=== PATIENT | male | born 1960 | race American Indian/Alaskan Native ===

== ENCOUNTER 2017-07-29 06:29 | Inpatient (IN) | payer SELFPAY ==
[2017-07-29] MEDS ORDERED: ZOFRAN ODT ONE (07:22)
[2017-07-29] MEDS ORDERED: ZOFRAN ODT PO ONE (07:28)
[2017-07-29 08:06] LABS: Albumin 4.2 g/dL (3.9-5); BUN/Creatinine Ratio 9; Blood Urea Nitrogen 10 mg/dL (9-20); Calcium 9.1 mg/dL (8.4-10.2); Hemolysis Index 164; Lipase 54 units/L (13-60)
[2017-07-29] MEDS ORDERED: NORVASC ONE (08:06)
[2017-07-29] MEDS ORDERED: NORVASC PO ONE (08:09)
[2017-07-29 08:10] LABS: Alanine Aminotransferase 22 units/L (7-56)
[2017-07-29 09:48] LABS: Bilirubin,Urine NEG (Negative); Blood,Urine MOD (Negative); Color,Urine Yellow (Yellow); Mucus,Urine 2+ /HPF; Urobilinogen,Urine < 2.0 mg/dL (<2.0)
[2017-07-29] MEDS ORDERED: DILAUDID IV ONE (10:23)
[2017-07-29] MEDS ORDERED: ZOFRAN IV ONE (10:23)
[2017-07-29] MEDS ORDERED: NACL 0.9% 1000 ML 1,000 ML IV ONE (10:23)
--- NOTE | 2017-07-29 10:28 | Emergency Department Report ---
ED Abdominal Pain HPI - General Chief Complaint: Abdominal Pain Stated Complaint: STOMACH POISONING Time Seen by Provider: 07/29/17 10:16 Source: patient Mode of arrival: Ambulatory Limitations: No Limitations - History of Present Illness Initial Comments: Mr. Duque is a 56-year-old male with history of PE, DVT, peripheral vascular disease who presents with severe abdominal pain radiating to both flanks. Symptoms began after drinking liquor yesterday afternoon. Severe 10 out of 10 central abdominal pain. No change with movement. No change with palpation. He was recently admitted at the [facility] for "alcohol poisoning". He was hospitalized for 8 days. No history of pancreatitis. Patient does have a history of [id number] amputation with prosthesis. He also has a history of hypertension. He does not drink alcohol daily. He is followed at the [facility]. He states that he has been noncompliant with Xarelto. He has had many recent life stressors which have distracted him for taking care of his health. MD Complaint: abdominal pain, flank pain -: Gradual, hour(s) (since yesterday evening) Radiation: L flank, R flank Severity: severe Severity scale (0 -10): 10 Quality: cramping, stabbing, aching, sharp Consistency: constant Improves With: nothing Worsens With: nothing Context: possible food poisoning, other (alcohol use) Associated Symptoms: nausea, vomiting. denies: diarrhea, fever, chills, constipation, dysuria - Related Data Allergies Allergy/AdvReac Type Severity Reaction Status Date / Time aspirin Allergy Unknown Verified 07/29/17 06:34 ED Review of Systems ROS: Stated complaint: STOMACH POISONING Other details as noted in HPI Comment: All other systems reviewed and negative Constitutional: malaise. denies: chills, fever Cardiovascular: denies: chest pain ED Past Medical Hx - Past Medical History Previous Medical History?: Yes Hx Hypertension: Yes Hx Deep Vein Thrombosis: Yes Hx Pulmonary Embolism: Yes - Social History Smoking Status: Current Every Day Smoker Substance Use Type: Alcohol ED Physical Exam - General Limitations: No Limitations General appearance: alert, other (appears in severe pain rocking back and forth in the bed) - Head Head exam: Present: atraumatic, normocephalic - Eye Eye exam: Present: normal appearance - ENT ENT exam: Present: mucous membranes moist - Neck Neck exam: Present: normal inspection. Absent: meningismus - Respiratory Respiratory exam: Present: normal lung sounds bilaterally. Absent: respiratory distress, wheezes, rales, rhonchi - Cardiovascular Cardiovascular Exam: Present: regular rate, normal rhythm, normal heart sounds. Absent: systolic murmur, diastolic murmur, rubs, gallop - GI/Abdominal GI/Abdominal exam: Present: soft, normal bowel sounds. Absent: distended, tenderness, guarding, rebound - Rectal Rectal exam: Present: deferred - Extremities Exam Extremities exam: Present: normal inspection, other (above the knee prosthesis on the right lower extremity) - Back Exam Back exam: Present: normal inspection - Neurological Exam Neurological exam: Present: alert, oriented X3 - Psychiatric Psychiatric exam: Present: anxious - Skin Skin exam: Present: warm, dry, intact, normal color. Absent: rash ED Course Vital Signs 07/29/17 07/29/17 07/29/17 06:38 08:11 10:22 Temperature 98.4 F Pulse Rate 93 H 93 H 88 Respiratory 20 21 Rate Blood Pressure 197/117 197/117 190/107 O2 Sat by Pulse 98 96 Oximetry 07/29/17 10:30 Temperature Pulse Rate 87 Respiratory 21 Rate Blood Pressure 195/111 O2 Sat by Pulse 93 Oximetry ED Medical Decision Making - Lab Data Result diagrams: 07/29/17 10:19 07/29/17 07:11 Laboratory Results - last 24 hr 07/29/17 07/29/17 07/29/17 07:11 09:20 10:19 WBC 8.4 RBC 5.64 H Hgb 17.6 H Hct 52.9 H MCV 94 MCH 31 MCHC 33 RDW 12.8 L Plt Count 153 Lymph % (Auto) 9.7 L Hill % (Auto) 4.0 Eos % (Auto) 0.0 Baso % (Auto) 0.3 Lymph # 0.8 L Hill # 0.3 Eos # 0.0 Baso # 0.0 Seg Neutrophils % 86.0 H Seg Neutrophils # 7.2 PT INR APTT Sodium 136 L Potassium 4.8 Chloride 97.7 L Carbon Dioxide 24 Anion Gap 19 BUN 10 Creatinine 1.1 Estimated GFR > 60 BUN/Creatinine Ratio 9 Glucose 148 H Calcium 9.1 Total Bilirubin 0.50 AST 34 ALT 22 Alkaline Phosphatase 101 Total Protein 8.2 Albumin 4.2 Albumin/Globulin Ratio 1.1 Lipase 54 Urine Color Yellow Urine Turbidity Clear Urine pH 5.0 Ur Specific [place] 1.028 Urine Protein 100 mg/dl Urine Glucose (UA) 50 Urine Ketones Tr Urine Blood Mod Urine Nitrite Neg Urine Bilirubin Neg Urine Urobilinogen < 2.0 Ur Leukocyte Esterase Neg Urine WBC (Auto) 3.0 Urine RBC (Auto) 4.0 U Epithel Cells (Auto) < 1.0 Uric Acid Crystals 1+ Urine Mucus 2+ Plasma/Serum Alcohol 07/29/17 07/29/17 10:19 10:19 WBC RBC Hgb Hct MCV MCH MCHC RDW Plt Count Lymph % (Auto) Hill % (Auto) Eos % (Auto) Baso % (Auto) Lymph # Hill # Eos # Baso # Seg Neutrophils % Seg Neutrophils # PT 13.9 INR 1.02 APTT 28.5 Sodium Potassium Chloride Carbon Dioxide Anion Gap BUN Creatinine Estimated GFR BUN/Creatinine Ratio Glucose Calcium Total Bilirubin AST ALT Alkaline Phosphatase Total Protein Albumin Albumin/Globulin Ratio Lipase Urine Color Urine Turbidity Urine pH Ur Specific [place] Urine Protein Urine Glucose (UA) Urine Ketones Urine Blood Urine Nitrite Urine Bilirubin Urine Urobilinogen Ur Leukocyte Esterase Urine WBC (Auto) Urine RBC (Auto) U Epithel Cells (Auto) Uric Acid Crystals Urine Mucus Plasma/Serum Alcohol < 0.01 - Medical Decision Making Mr. Spivey has hx of VTE and severe PVD. Noncompliant with Xarelto. Today has renal infarct on right involving 30% of kidney. Dr. Alvares vascular surgeon recommended heparin therapy for anticoagulation for acute thromboembolic event leading to renal infarct. Dr. Valdovinos hospitalist will admit. Critical Care Time: Yes (40) Critical care attestation.: If time is entered above; I have spent that time in minutes in the direct care of this critically ill patient, excluding procedure time. ED Disposition Clinical Impression: Renal infarction, PVD (peripheral vascular disease) Disposition: OP ADMIT IP TO THIS HOSP Is pt being admited?: Yes Does the pt Need Aspirin: Yes Condition: Stable Time of Disposition: 13:05
[2017-07-29 10:41] LABS: Basophils % (Auto) 0.3 % (0.0-1.8); Hematocrit 52.9 % (35.5-45.6); Hemoglobin 17.6 gm/dl (11.8-15.2); Lymphocytes # (Auto) 0.8 K/mm3 (1.2-5.4); Lymphocytes % (Auto) 9.7 % (13.4-35.0); Mean Corpuscular HGB Conc 33 % (32-34); Mean Corpuscular Hemoglobin 31 pg (28-32); Mean Corpuscular Volume 94 fl (84-94); Monocytes # (Auto) 0.3 K/mm3 (0.0-0.8); Platelet Count 153 K/mm3 (140-440); Red Blood Count 5.64 M/mm3 (3.65-5.03); Red Cell Distribution Width 12.8 % (13.2-15.2)
[2017-07-29 10:51] LABS: INR 1.02 (0.87-1.13)
[2017-07-29 10:52] LABS: Partial Thromboplastin Time 28.5 Sec. (24.2-36.6)
--- NOTE | 2017-07-29 11:37 | Cat Scan Report ---
CT ABDOMEN AND PELVIS WITH CONTRAST: 07/29/17 06:29:00 CLINICAL: Abdominal pain. COMPARISON: None. TECHNIQUE: Volumetric acquisition and 1.25 millimeter scan reconstructions after the uneventful intravenous injection of 100 cc Omnipaque 300. Consent was obtained prior to the administration of contrast. Oral contrast was not given. FINDINGS: Abdomen: The lung bases are clear.Atherosclerotic disease of the aorta with extensive plaque in the lower thoracic and abdominal aorta. No aneurysm or dissection. IVC filter. A large portion of the right kidney is not perfused. There is a wedge-shaped defect in perfusion involves the lateral upper and midportion of the kidney. The right renal artery appears patent with no identifiable thrombus in the artery. No renal mass or calculus. The left kidney is normal except for a 7 mm left upper pole cyst. The renal collecting systems the ureters are nondilated. The right adrenal gland is normal. The left adrenal gland is enlarged by 1.4 cm hypodense nodule that splays the medial and lateral limbs. It measures 57 Hounsfield units in density. Normal liver, bile ducts and gallbladder. Normal stomach, duodenum, pancreas and spleen. Normal small bowel.Normal ascending, transverse and descending colon. An appendix is not identified. No mass, lymphadenopathy or ascites.No pneumoperitoneum. Pelvis: Normal urinary bladder.The prostate is enlarged and measures 5.3 x 4.6 cm. Normal seminal vesicles. Normal rectum and sigmoid colon. Aneurysm of the right common iliac artery measures 1.8 cm and contains considerable plaque. Aneurysm of the left common femoral artery measures 1.9 cm and contains considerable plaque. The right common femoral artery and right official femoral artery are occluded at the groin but there is collateral flow through the right profunda femoral artery. Bone windows demonstrate no bone lesion. IMPRESSION:1. A sizable acute/subacute infarct involving approximately 30% of the right kidney with a patent right renal artery. 2. Occlusion of the right common femoral and superficial femoral arteries with collateral flow through the right profunda femoral artery. 3. Atherosclerotic disease of the aorta with extensive noncalcified plaque. 4. Atherosclerotic disease of the iliac arteries and bilateral common iliac aneurysm. 5. Large prostate.
[2017-07-29] MEDS ORDERED: SODIUM CHLORIDE FLUSH SYRINGE 10 ML IV PRN (13:03)
[2017-07-29] MEDS ORDERED: TYLENOL PO PRN (13:03)
[2017-07-29] MEDS ORDERED: PROVENTIL IH PRN (13:03)
--- NOTE | 2017-07-29 13:05 | History and Physical Report ---
History of Present Illness Chief complaint: My stomach hurts History of present illness: 56 YO Male with PAD, DVT/PE, HTN Noncompliant with anticoagulation, Nicotine Dependence, ETOH Abuse presents to ED for evaluation. Pt states that he has experienced abdominal pain over the past 1 day with persistent symptoms over the same time fram. Pt states that pain is 10/10, Epigastric in location, Cramping, Sharp, constant, radiates to the left flank, no worsened with movement , or relieved with rest. Pt seen and evaluated in ED and underwent CT Abdomen/ Pelvis which revealed Right Renal Ischemia. IR consulted in ED. Pt initiated on anticoagulation therapy and admitted to medical floor. Past History Past Medical History: DVT, hypertension, PVD, pulmonary embolism Past Surgical History: Other (AKA) Social history: single, smoking, alcohol abuse Family history: hypertension Medications and Allergies Allergies Allergy/AdvReac Type Severity Reaction Status Date / Time aspirin Allergy Unknown Verified 07/29/17 06:34 Review of Systems Constitutional: no weight loss, no weight gain, no fever, no sweats Ears, nose, mouth and throat: no ear pain, no ear discharge, no tinnitis, no decreased hearing, no nose pain, no nasal congestion Cardiovascular: no orthopnea, no palpitations, no rapid/irregular heart beat, no edema, no syncope Respiratory: no cough, no cough with sputum, no excessive sputum, no hemoptysis , no shortness of breath Gastrointestinal: abdominal pain, no nausea, no vomiting, no diarrhea Genitourinary Male: no hematuria, no flank pain, no discharge, no urinary frequency, no urinary hesitancy Rectal: no pain, no incontinence, no bleeding Musculoskeletal: no neck stiffness, no neck pain, no shooting arm pain, no arm numbness/tingling, no low back pain, no shooting leg pain Integumentary: no rash, no pruritis, no sores, no wounds, no jaundice Neurological: no head injury, no paralysis, no weakness, no parathesias, no numbness, no tingling Psychiatric: no anxiety, no memory loss, no change in sleep habits, no sleep disturbances, no insomnia, no hypersomnia, no suicidal ideation, no disorientation Endocrine: no cold intolerance, no heat intolerance, no polyphagia, no excessive thirst, no polydipsia, no polyuria, no nocturia, no excessive sweating , no flushing Hematologic/Lymphatic: no easy bruising, no easy bleeding, no lymphadenopathy, no lymphedema Allergic/Immunologic: no urticaria, no allergic rhinitis, no wheezing, no persistent infections, no anaphylaxis, no angioedema Exam - Constitutional Vitals: Temp Pulse Resp BP Pulse Ox 98.4 F 87 21 195/111 93 07/29/17 06:38 07/29/17 10:30 07/29/17 10:30 07/29/17 10:30 07/29/17 10:30 General appearance: Present: mild distress - EENT Eyes: Present: PERRL ENT: hearing intact, clear oral mucosa - Neck Neck: Present: supple, normal ROM - Respiratory Respiratory effort: normal Respiratory: bilateral: CTA - Cardiovascular Heart Sounds: Present: S1 & S2. Absent: rub, click - Extremities Extremities: pulses symmetrical, No edema Peripheral Pulses: within normal limits - Abdominal General gastrointestinal: Present: soft, non-tender, non-distended, normal bowel sounds Male genitourinary: Present: normal - Integumentary Integumentary: Present: clear, warm, dry - Musculoskeletal Musculoskeletal: gait normal, strength equal bilaterally - Psychiatric Psychiatric: appropriate mood/affect, intact judgment & insight - Neurologic Neurologic: CNII-XII intact, moves all extremities Results - Labs CBC & Chem 7: 07/29/17 10:19 07/29/17 07:11 Labs: Abnormal lab results 07/29/17 07/29/17 Range/Units 07:11 10:19 RBC 5.64 H (3.65-5.03) M/mm3 Hgb 17.6 H (11.8-15.2) gm/dl Hct 52.9 H (35.5-45.6) % RDW 12.8 L (13.2-15.2) % Lymph % (Auto) 9.7 L (13.4-35.0) % Lymph # 0.8 L (1.2-5.4) K/mm3 Seg Neutrophils % 86.0 H (40.0-70.0) % Sodium 136 L (137-145) mmol/L Chloride 97.7 L (98-107) mmol/L Glucose 148 H (75-100) mg/dL Assessment and Plan - Patient Problems (1) Ischemia and infarction of kidney Current Visit: Yes Status: Acute Plan to address problem: IR consulted, Heparin drip, pain control, serial abdominal exam, (2) PAD (peripheral artery disease) Current Visit: Yes Status: Acute Plan to address problem: IR consulted, lipid panel, low cholesterol diet, therapeutic anticoagulation, Risk factor reduction. (3) Hypertensive urgency, malignant Current Visit: Yes Status: Acute Plan to address problem: monitor bp q shift, IV hydralazine prn (4) Nicotine dependence unspecified, with withdrawal Current Visit: Yes Status: Acute Plan to address problem: Supportive care, smoking cessation counseling, (5) ETOH abuse Current Visit: Yes Status: Acute Plan to address problem: Thiamine, Folic Acid, Multivitamin, CIWA Protocol. (6) DVT prophylaxis Current Visit: Yes Status: Acute
[2017-07-29] MEDS ORDERED: HEPARIN 10,000 UNITS/10 ML IV ONE (14:00)
[2017-07-29] MEDS ORDERED: HEPARIN/ 0.45% NACL-25,000 UNIT/500 ML 25,000 UNIT/500 ML BAG ONE (14:41)
[2017-07-29] MEDS ORDERED: HEPARIN 10,000 UNITS/10 ML ONE (14:42)
[2017-07-29] MEDS: HEPARIN/ 0.45% NACL-25,000 UNIT/500 ML 25,000 UNIT/500 ML BAG IV SCH (14:58)
[2017-07-29] MEDS ORDERED: ATIVAN IV PRN (15:40)
[2017-07-29 16:13] LABS: Hematocrit 51.5 % (35.5-45.6); Hemoglobin 17.1 gm/dl (11.8-15.2)
[2017-07-29 16:36] LABS: INR 1.13 (0.87-1.13)
--- NOTE | 2017-07-29 16:50 | Consultation ---
History of Present Illness - Reason for Consult Consult date: 07/29/17 Renal infarct - History of Present Illness 56 year old male with PAD, DVT/PE, HTN, noncompliant with anticoagulation, nicotine Dependence, ETOH abuse presents to ED for evaluation. Pt states that he has experienced abdominal pain over the past 1 day with persistent symptoms over the same time frame. Pt states that pain is 10/10, Epigastric in location, cramping, sharp, and constant. He also has severe pain over his right flank. Patient was seen 2 weeks ago at [facility] with similar complaints which was associated with nausea and vomiting and was diagnosed with "alcohol poisoning" and did not have a CT at that facility. Patient has a history of protein C deficiency and multiple DVTs in the left lower extremity. He has a right above-knee amputation which occurred 3 years ago. This happened due to a "blood clot". Physical exam demonstrates non-palpable left pedal pulses with a well-healed right above-knee amputation. Past History Past Medical History: DVT, hypertension, PVD, pulmonary embolism Past Surgical History: Other (AKA) Social history: single, smoking, alcohol abuse Family history: hypertension Medications and Allergies Allergies Allergy/AdvReac Type Severity Reaction Status Date / Time aspirin Allergy Unknown Verified 07/29/17 06:34 Active Meds: Active Medications Acetaminophen (Tylenol) 650 mg PO Q4H PRN PRN Reason: Pain MILD(1-3)/Fever >100.5/[place] Albuterol (Proventil) 2.5 mg IH Q4H PRN PRN Reason: Shortness Of Breath Folic Acid (Folvite) 1 mg PO QDAY [facility] Heparin Sodium/Sodium Chloride (Heparin/ 0.45% Nacl-25,000 Unit/500 Ml) 25,000 unit in 500 mls @ 24 mls/hr IV TITR LIV; Protocol Last Admin: 07/29/17 14:58 Dose: 1,200 units/hr, 24 mls/hr Lorazepam (Ativan) 2 mg IV Q1H PRN PRN Reason: CIWA-Ar 8-15 Stop: 07/30/17 23:59 Multivitamins (Theragran Tab) 1 each PO QDAY [facility] Ondansetron HCl (Zofran) 4 mg IV Q8H PRN PRN Reason: Nausea And Vomiting Sodium Chloride (Sodium Chloride Flush Syringe 10 Ml) 10 ml IV BID LIV Sodium Chloride (Sodium Chloride Flush Syringe 10 Ml) 10 ml IV PRN PRN PRN Reason: LINE FLUSH Thiamine HCl (Vitamin B-1) 100 mg PO QDAY LIV Review of Systems All systems: negative (see HPI) Exam - Constitutional Vitals: Temp Pulse Resp BP Pulse Ox 98.4 F 97 H 17 159/90 95 07/29/17 06:38 07/29/17 15:15 07/29/17 15:15 07/29/17 15:15 07/29/17 15:15 General appearance: Present: mild distress (right flank pain) - EENT Eyes: Present: EOM intact ENT: hearing intact - Neck Neck: Present: supple - Respiratory Respiratory effort: normal - Extremities Extremities: normal temperature, normal color, abnormal (right AKA) Extremity abnormal: pulses diminished (left nonpalpable pedal pulses), other ( dry skin over the left foot and ankle) Peripheral Pulses: abnormal - Abdominal General gastrointestinal: Present: tender (right flank ) - Psychiatric Psychiatric: appropriate mood/affect, cooperative Results - Labs CBC & Chem 7: 07/29/17 15:33 07/29/17 07:11 Labs: Abnormal lab results 07/29/17 07/29/17 07/29/17 Range/Units 07:11 10:19 15:33 RBC 5.64 H (3.65-5.03) M/mm3 Hgb 17.6 H 17.1 H (11.8-15.2) gm/dl Hct 52.9 H 51.5 H (35.5-45.6) % RDW 12.8 L (13.2-15.2) % Plt Count 138 L (140-440) K/mm3 Lymph % (Auto) 9.7 L (13.4-35.0) % Lymph # 0.8 L (1.2-5.4) K/mm3 Seg Neutrophils % 86.0 H (40.0-70.0) % PT (12.2-14.9) Sec. Sodium 136 L (137-145) mmol/L Chloride 97.7 L (98-107) mmol/L Glucose 148 H (75-100) mg/dL 07/29/17 Range/Units 15:33 RBC (3.65-5.03) M/mm3 Hgb (11.8-15.2) gm/dl Hct (35.5-45.6) % RDW (13.2-15.2) % Plt Count (140-440) K/mm3 Lymph % (Auto) (13.4-35.0) % Lymph # (1.2-5.4) K/mm3 Seg Neutrophils % (40.0-70.0) % PT 15.1 H (12.2-14.9) Sec. Sodium (137-145) mmol/L Chloride (98-107) mmol/L Glucose (75-100) mg/dL - Imaging and Cardiology CT scan - abdomen: report reviewed, image reviewed Assessment and Plan 56-year-old male with history of multiple DVTs, right above-knee amputation, and a history of both tobacco and ethanol abuse who presents with right renal infarct. Etiology of the renal infarct is thromboembolic, atheroembolic, or secondary to hypercoagulable condition. The patient has a history of protein C deficiency with laboratory evidence of polycythemia. This is most likely secondary to these hypercoagulable conditions, but he needs to be worked up to exclude a thromboembolic condition. He will need a hematology oncology consult for further evaluation of his polycythemia. I suspect this is partially related to tobacco abuse, but polycythemia in combination with protein C deficiency makes the patient especially hypercoagulable. I discussed cessation of tobacco with the patient. He'll need a cardiology consult to exclude thromboembolic etiology of his renal infarct. His left lower extremity has nonpalpable pedal pulses which I suspect is due to long-standing smoking as his left lower extremity is asymptomatic. However, he will need a CT angiogram of his chest, abdomen, and pelvis to exclude thromboembolic allergies. Patient can be transitioned back to Xarelto if cardiology does not require a EVETTE and hematology is okay with Xarelto. Would recommend reinitiation with 15 mg PO BID x 3 weeks, then 20 mg PO qdaily.
[2017-07-29 17:18] LABS: Partial Thromboplastin Time 188.7 Sec. (24.2-36.6)
[2017-07-29] MEDS: VITAMIN B-1 PO SCH (18:40)
[2017-07-29] MEDS: THERAGRAN Tab PO SCH (18:41)
[2017-07-29] MEDS: FOLVITE PO SCH (18:41)
[2017-07-29] MEDS: PERCOCET 5/325 PO PRN (21:11)
[2017-07-29] MEDS: APRESOLINE IV PRN (21:11)
[2017-07-29] MEDS: SODIUM CHLORIDE FLUSH SYRINGE 10 ML IV SCH (21:14)
[2017-07-30] MEDS: PERCOCET 5/325 PO PRN ×3 (03:05→18:37)
[2017-07-30] MEDS: SODIUM CHLORIDE FLUSH SYRINGE 10 ML IV SCH ×2 (09:52→23:23)
[2017-07-30] MEDS: FOLVITE PO SCH (09:52)
[2017-07-30] MEDS: VITAMIN B-1 PO SCH (09:52)
[2017-07-30] MEDS: THERAGRAN Tab PO SCH (09:52)
[2017-07-30] MEDS: HEPARIN/ 0.45% NACL-25,000 UNIT/500 ML 25,000 UNIT/500 ML BAG IV SCH (09:55)
[2017-07-30] MEDS: HABITROL TD SCH (13:35)
--- NOTE | 2017-07-30 14:22 | Progress Note ---
Assessment and Plan / Ischemia and infarction of kidney IR consulted, Heparin drip, pain control, serial abdominal exam, ordered CTA chest/abdomen/pelvis /PAD (peripheral artery disease) lipid panel, low cholesterol diet, therapeutic anticoagulation, Risk factor reduction. /Hypertensive urgency, monitor bp q shift, IV hydralazine prn / Nicotine dependence unspecified, with withdrawal Supportive care, smoking cessation counseling done, / ETOH abuse Thiamine, Folic Acid, Multivitamin, CIWA Protocol. / DVT prophylaxis heparin drip Brief history: 56 YO Male with PAD, DVT/PE, HTN Noncompliant with anticoagulation, Nicotine Dependence, ETOH Abuse presents to ED for abdominal pain over the past 1 day with persistent symptoms. Pt seen and evaluated in ED and underwent CT Abdomen /Pelvis which revealed Right Renal Ischemia. IR consulted in ED. Pt initiated on anticoagulation therapy and admitted to medical floor. Hospitalist Physical exam: GENERAL: well-developed male lying on bed appeared to be in no discomfort. HEENT: Normocephalic. Atraumatic. No conjunctival congestion or icterus. Patient has moist mucous membranes. NECK: Supple. Trachea midline. CHEST/LUNGS: Clear to auscultated bilaterally, breathing nonlabored. No wheezes crackles or rhonchi. HEART/CARDIOVASCULAR: Regular in rate and rhythm. S1 and S2 positive. ABDOMEN: Abdomen is soft, right tender. Patient has normal bowel sounds. SKIN: There is no rash. Warm and dry. NEURO: No focal motor deficit. Follows command. MUSCULOSKELETAL: No joint effusion or tenderness. EXTRIMITY: No edema, no cyanosis or clubbing. PSYCH: Cooperative. Subjective Date of service: 07/30/17 Interval history: pt seen and examined no acute event o/n tolerating diet c/o rt lumber pain Objective - Constitutional Vitals: Vital Signs - 12hr 07/30/17 07/30/17 05:37 08:28 Temperature 99.7 F H 98.2 F Pulse Rate 99 H 97 H Respiratory 20 20 Rate Blood Pressure 144/96 152/102 O2 Sat by Pulse 94 92 Oximetry - Labs CBC & Chem 7: 07/29/17 15:33 07/29/17 07:11 Labs: Abnormal lab results 07/29/17 07/29/17 07/29/17 Range/Units 15:33 15:33 20:45 Hgb 17.1 H (11.8-15.2) gm/dl Hct 51.5 H (35.5-45.6) % Plt Count 138 L (140-440) K/mm3 PT 15.1 H (12.2-14.9) Sec. APTT 188.7 H* (24.2-36.6) Sec. Heparin Anti-Xa Level 0.20 L (0.3-0.7) U.I./ml
--- NOTE | 2017-07-30 18:45 | Cat Scan Report ---
FINAL REPORT PROCEDURE: PROCEDURE: CT ANGIO CHEST ABDOMEN AND PELVIS TECHNIQUE: CTA of the chest abdomen and pelvis was performed with intravenous contrast. Reformatted/MIP images available. DLP 133.74 mGy-cm. HISTORY: Possible embolism. COMPARISON: No prior studies are available for comparison. FINDINGS: Heart and pericardium: Mild LAD and circumflex coronary artery disease. Mild cardiomegaly. Thoracic aorta: Moderate atherosclerosis, somewhat irregular in the descending thoracic aorta and at the hiatus. Ascending aorta measures 4.3 cm. Descending aorta measures 3 cm. Pulmonary vasculature: Linear areas of low attenuation and right upper lobe pulmonary artery branches (images 73 series 3). Subtle area of low attenuation in smaller segmental right lower lobe pulmonary artery branches (images 52, 54 series 2; images 103, 108 series 3). Also difficult to exclude smaller segmental/subsegmental left lower lobe emboli (image 117 series 3; images 108, 117 series 3). Mediastinum: No enlarged thoracic lymph nodes. Lungs: Minimal biapical paraseptal emphysema. Bibasilar ground-glass opacities and airspace disease. Although could be volume averaging possible 5.3 mm nodule in the medial left lower lobe (image 87 series 2). Small adjacent densely calcified granuloma or pleural calcification. Pleural space: No effusion, thickening, or pneumothorax. Liver: 5 mm area of low attenuation in the right lobe of the liver, with smaller similar punctate areas of low attenuation in the liver. Focal fatty change about the falciform. Spleen: Normal size and attenuation. Gallbladder and biliary system: Pancreas: Adrenals: Left adrenal gland somewhat nodular with possible smaller discrete 8.5 mm area of low attenuation. Kidneys: Large wedge-shaped area in the superior/midpole the right kidney. There may be minimal stranding about the right kidney. Small focal subcentimeter areas of low attenuation throughout the bilateral kidneys. GI tract:Thickening of the gastric body/antrum. Cecum decompressed. Moderate stool in the ascending colon. Alternating areas of narrowing and air-filled distal transverse and distended rectosigmoid colon.Portion of what appears to be normal caliber appendix seen in the right lower quadrant limited visualization as there is volume averaging with adjacent decompressed cecum. Lymph nodes and mesentery: Vasculature: Moderate atherosclerosis. Atherosclerosis somewhat irregular, particularly at the aortic hiatus and just above aortic bifurcation. Moderate stenosis of the proximal bilateral iliac arteries. Moderate stenosis of the right common femoral artery. Limited visualization of the proximal right renal artery due to artifact from IVC filter. There is an IVC filter. Some of the prongs appear in extraluminal. There is diffuse low-attenuation in the IVC, femoral, and iliac veins. Right renal vein appears narrowed compared to the left. Bladder: Reproductive organs: Enlarged prostate. Peritoneum: There is a small amount of ascites. Musculoskeletal structures: Small multilevel osteophytes. Slight levo scoliotic curvature may be positional. Other: There are bilateral fat filled inguinal hernias. IMPRESSION: Mild cardiomegaly with mild LAD and circumflex coronary artery disease. 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 Atherosclerosis appears irregular. There is moderate stenosis of the proximal bilateral iliac arteries in the right common femoral artery. Limited visualization of the proximal right renal artery due to artifact from the IVC filter. Consider arterial Doppler ultrasound if there is continued clinical concern. Diffuse low-attenuation in the IVC, femoral vein, and iliac veins. Right renal vein appears narrowed compared to the left. Although could be within normal limits and related to phase of contrast, recommend further evaluation including venous Doppler ultrasound if there is concern including concern for DVT. Some of the prongs of the IVC filter appear extraluminal, of uncertain clinical significance in asymptomatic patient. Linear areas of low attenuation in right upper/lower, and left lower lobe smaller segmental sub subsegmental branches. Uncertain whether due to degree of opacification/motion artifact or true emboli. Recommend further evaluation including repeat CTA pulmonary embolism protocol chest CT if there is continued clinical concern as cannot exclude subtle smaller segmental/subsegmental pulmonary emboli. Minimal biapical emphysema. Bibasilar atelectasis or pneumonitis. Although could be volume averaging, possible left lower lobe pulmonary nodule. Consider attention on follow-up chest CT in 1 year if patient is considered high risk. Small densely calcified granuloma or pleural calcification. Areas of low attenuation in the liver, likely hemangiomas or cysts. Thickened left adrenal gland, somewhat nodular with possible more discrete nodule. Consider adrenal protocol MRI for further characterization if there is continued clinical concern and patient has no contraindication to MRI. Wedge-shaped area of low attenuation in the right kidney, concerning for renal infarction. Less likely consider infectious/inflammatory process such as pyelonephritis or even mass lesion. Smaller areas of low attenuation in the lower in the kidneys, likely cysts. Thickening of the gastric body/antrum, likely degree of distention but consider mild desk gastritis. Similar findings in the colon. Appendix not confidently identified, limited visualization as there is volume averaging with adjacent decompressed cecum. Mildly prominent tubular structure in the right lower quadrant felt to likely be related to decompressed cecum rather than prominent appendix. Recommend further evaluation including clinical correlation if there is continued clinical concern for appendiceal pathology. Enlarged prostate. Small amount of ascites. Bilateral fat filled inguinal hernias.
--- NOTE | 2017-07-30 22:23 | Consultation ---
REFERRING PHYSICIAN: Dr. Tubbs REASON FOR CONSULTATION: Hypercoagulable state. HISTORY OF PRESENT ILLNESS: The patient is a 56-year-old very noncompliant patient with history of peripheral arterial disease, history of DVT, PE in the past, hypertension, who also has history of tobacco and alcohol abuse. He states he used to be on Coumadin for protein C deficiency, but they stopped giving it to him because of noncompliance and placed him on Xarelto. He states he has not taken Xarelto for a week. Started having pain in the abdomen, especially on the right side along with epigastric pain. He also had a recent hospitalization to [facility] for alcohol poisoning. During his hospital course here, because of his abdominal pain, he had a CT of the abdomen and pelvis where he was found to have a sizable acute/subacute infarct involving approximately 30% of the right kidney. The occlusion of the right common femoral and superficial femoral arteries with collaterals was also noted. There was atherosclerotic disease of the aorta with extensive noncalcified plaque. There was atherosclerotic disease in the iliac arteries bilateral common iliac aneurysm. He also had enlarged prostate noted. The patient is currently on heparin. A CT of the chest also has been ordered for shortness of breath. PAST MEDICAL HISTORY: Positive for AKA in the past from peripheral vascular disease, multiple PEs, history of protein C deficiency. SOCIAL HISTORY: Positive for tobacco and alcohol abuse. PHYSICAL EXAMINATION: GENERAL: The patient is awake and oriented, seems to be quite nonchalant. HEAD AND ENT: Unremarkable. CHEST: Clear. CARDIOVASCULAR: Regular rate and rhythm. ABDOMEN: Soft. There is tenderness noted in the right flank and epigastric area. EXTREMITIES: The patient has a right AKA and left leg has no swelling. LABORATORY DATA: Hemoglobin of 17.1, hematocrit 51.5, platelets of 138. Chemistries are within normal limits. Creatinine 1.1, BUN 10. ASSESSMENT AND PLAN: 1. History of multiple deep venous thromboses, pulmonary embolism, and a protein C deficiency in the past, status post right above knee amputation. 2. Right kidney infarct. 3. Noncompliance. 4. Enlarged prostate on the CT. 5. Tobacco and alcohol abuse. 6. Elevated hemoglobin and hematocrit, possibly related to tobacco and alcohol. RECOMMENDATION AND PLAN: At this time, we will go ahead and check his prostate. We will also check an EPO level. Agree with heparin. He needs to be on Xarelto and I have strongly recommended for him to continue Xarelto without stopping or missing doses because of his high risk for thrombosis. Strongly recommended for the patient to quit smoking and I have started him on a nicotine patch. Once he is stable, he can be switched to Xarelto. JOB# [id number] GKS/NTS
[2017-07-31] MEDS: PERCOCET 5/325 PO PRN ×3 (01:36→21:28)
[2017-07-31 05:06] LABS: Basophils % (Auto) 0.3 % (0.0-1.8); Hematocrit 47.8 % (35.5-45.6); Hemoglobin 15.5 gm/dl (11.8-15.2); Lymphocytes # (Auto) 1.7 K/mm3 (1.2-5.4); Lymphocytes % (Auto) 15.2 % (13.4-35.0); Mean Corpuscular HGB Conc 32 % (32-34); Mean Corpuscular Hemoglobin 31 pg (28-32); Mean Corpuscular Volume 95 fl (84-94); Monocytes # (Auto) 1.3 K/mm3 (0.0-0.8); Monocytes % (Auto) 11.7 % (0.0-7.3); Platelet Count 128 K/mm3 (140-440); Red Blood Count 5.06 M/mm3 (3.65-5.03); Red Cell Distribution Width 13.1 % (13.2-15.2)
[2017-07-31 05:22] LABS: BUN/Creatinine Ratio 9; Blood Urea Nitrogen 12 mg/dL (9-20); Calcium 8.4 mg/dL (8.4-10.2); Hemolysis Index 13
[2017-07-31] MEDS: ZOFRAN IV PRN ×2 (08:28→17:26)
[2017-07-31] MEDS: HEPARIN/ 0.45% NACL-25,000 UNIT/500 ML 25,000 UNIT/500 ML BAG IV SCH ×2 (08:30→08:36)
[2017-07-31] MEDS: SODIUM CHLORIDE FLUSH SYRINGE 10 ML IV SCH ×2 (10:00→21:25)
--- NOTE | 2017-07-31 10:26 | Hem/Onc Progress Note ---
Assessment and Plan Continue supportive care. Can be switched to Xarelto. Patient's CBC shows hemoglobin coming down. I feel his high hemoglobin was possibly from volume depletion and is improving. Upon discharge I can follow him. Platelets slightly low. Can be followed as outpatient. Subjective Date of service: 07/31/17 Interval history: Patient continues to have a right sided flank pain. He rates it at 8 out of 10 Objective - Constitutional Vitals: Last Vital Signs Temp 99.9 F H 07/31/17 07:54 Pulse 86 07/31/17 07:54 Resp 20 07/31/17 07:54 BP 131/75 07/31/17 07:54 Pulse Ox 93 07/31/17 07:54 General appearance: no acute distress - Neck Neck: supple - Respiratory Respiratory effort: Positive: normal Respiratory: bilateral: CTA - Cardiovascular Rhythm: regular - Gastrointestinal General gastrointestinal: Present: soft - Labs Lab Results: Laboratory Results - last 24 hr 07/31/17 07/31/17 07/31/17 03:40 03:40 05:57 WBC 11.4 H RBC 5.06 H Hgb 15.5 H Hct 47.8 H MCV 95 H MCH 31 MCHC 32 RDW 13.1 L Plt Count 128 L Lymph % (Auto) 15.2 [place] % (Auto) 11.7 H Eos % (Auto) 0.0 Baso % (Auto) 0.3 Lymph # 1.7 [place] # 1.3 H Eos # 0.0 Baso # 0.0 Seg Neutrophils % 72.8 H Seg Neutrophils # 8.3 H Heparin Anti-Xa Level 0.20 L Sodium 136 L Potassium 3.9 Chloride 98.8 Carbon Dioxide 24 Anion Gap 17 BUN 12 Creatinine 1.4 Estimated GFR > 60 BUN/Creatinine Ratio 9 Glucose 125 H Calcium 8.4
[2017-07-31] MEDS: THERAGRAN Tab PO SCH (10:51)
[2017-07-31] MEDS: FOLVITE PO SCH (10:52)
[2017-07-31] MEDS: VITAMIN B-1 PO SCH (10:52)
[2017-07-31] MEDS: HABITROL TD SCH (10:52)
--- NOTE | 2017-07-31 17:35 | Progress Note ---
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 --DVT prophylaxis Patient is already on Xarelto Consults and recommendations noted and appreciated Case management but is planning Possible discharge in 1-2 days if stable History Interval history: Patient with a history of protein C deficiency was admitted with renal infarct She is on heparin drip, vascular and hematology evaluated the patient Patient feels better no new complaints Vital signs reviewed stable Alert awake oriented 3 not in acute distress Hospitalist Physical - Constitutional Vitals: Temp Pulse Resp BP Pulse Ox 100.8 F H 92 H 20 140/90 96 07/31/17 16:14 07/31/17 16:14 07/31/17 16:14 07/31/17 16:14 07/31/17 16:14 General appearance: Present: no acute distress, well-nourished - EENT Eyes: Present: PERRL, EOM intact - Neck Neck: Present: supple, normal ROM - Respiratory Respiratory effort: normal Respiratory: bilateral: diminished, negative: rales, rhonchi, wheezing - Cardiovascular Rhythm: regular Heart Sounds: Present: S1 & S2 - Extremities Extremities: no ischemia, No edema - Abdominal General gastrointestinal: soft, non-tender, non-distended, normal bowel sounds - Integumentary Integumentary: Present: clear, warm - Psychiatric Psychiatric: appropriate mood/affect, cooperative - Neurologic Neurologic: CNII-XII intact, moves all extremities Results - Labs CBC & Chem 7: 07/31/17 03:40 07/31/17 03:40 Labs: Laboratory Last Values WBC 11.4 K/mm3 (4.5-11.0) H 07/31/17 03:40 RBC 5.06 M/mm3 (3.65-5.03) H 07/31/17 03:40 Hgb 15.5 gm/dl (11.8-15.2) H 07/31/17 03:40 Hct 47.8 % (35.5-45.6) H 07/31/17 03:40 MCV 95 fl (84-94) H 07/31/17 03:40 MCH 31 pg (28-32) 07/31/17 03:40 MCHC 32 % (32-34) 07/31/17 03:40 RDW 13.1 % (13.2-15.2) L 07/31/17 03:40 Plt Count 128 K/mm3 (140-440) L 07/31/17 03:40 Lymph % (Auto) 15.2 % (13.4-35.0) 07/31/17 03:40 [place] % (Auto) 11.7 % (0.0-7.3) H 07/31/17 03:40 Eos % (Auto) 0.0 % (0.0-4.3) 07/31/17 03:40 Baso % (Auto) 0.3 % (0.0-1.8) 07/31/17 03:40 Lymph # 1.7 K/mm3 (1.2-5.4) 07/31/17 03:40 [place] # 1.3 K/mm3 (0.0-0.8) H 07/31/17 03:40 Eos # 0.0 K/mm3 (0.0-0.4) 07/31/17 03:40 Baso # 0.0 K/mm3 (0.0-0.1) 07/31/17 03:40 Seg Neutrophils % 72.8 % (40.0-70.0) H 07/31/17 03:40 Seg Neutrophils # 8.3 K/mm3 (1.8-7.7) H 07/31/17 03:40 PT 15.1 Sec. (12.2-14.9) H 07/29/17 15:33 INR 1.13 (0.87-1.13) 07/29/17 15:33 APTT 188.7 Sec. (24.2-36.6) H* 07/29/17 15:33 Heparin Anti-Xa Level 0.14 U.I./ml (0.3-0.7) L 07/31/17 14:42 Sodium 136 mmol/L (137-145) L 07/31/17 03:40 Potassium 3.9 mmol/L (3.6-5.0) 07/31/17 03:40 Chloride 98.8 mmol/L (98-107) 07/31/17 03:40 Carbon Dioxide 24 mmol/L (22-30) 07/31/17 03:40 Anion Gap 17 mmol/L 07/31/17 03:40 BUN 12 mg/dL (9-20) 07/31/17 03:40 Creatinine 1.4 mg/dL (0.8-1.5) 07/31/17 03:40 Estimated GFR > 60 ml/min 07/31/17 03:40 BUN/Creatinine Ratio 9 % 07/31/17 03:40 Glucose 125 mg/dL (75-100) H 07/31/17 03:40 Calcium 8.4 mg/dL (8.4-10.2) 07/31/17 03:40 Total Bilirubin 0.50 mg/dL (0.1-1.2) 07/29/17 07:11 AST 34 units/L (5-40) 07/29/17 07:11 ALT 22 units/L (7-56) 07/29/17 07:11 Alkaline Phosphatase 101 units/L (35-129) 07/29/17 07:11 Total Protein 8.2 g/dL (6.3-8.2) 07/29/17 07:11 Albumin 4.2 g/dL (3.9-5) 07/29/17 07:11 Albumin/Globulin Ratio 1.1 % 07/29/17 07:11 Lipase 54 units/L (13-60) 07/29/17 07:11 Prostate Specific Ag 1.99 ng/mL (0.00-4.00) 07/29/17 10:19 Urine Color Yellow (Yellow) 07/29/17 09:20 Urine Turbidity Clear (Clear) 07/29/17 09:20 Urine pH 5.0 (5.0-7.0) 07/29/17 09:20 Ur Specific [place] 1.028 (1.003-1.030) 07/29/17 09:20 Urine Protein 100 mg/dl mg/dL (Negative) 07/29/17 09:20 Urine Glucose (UA) 50 mg/dL (Negative) 07/29/17 09:20 Urine Ketones Tr mg/dL (Negative) 07/29/17 09:20 Urine Blood Mod (Negative) 07/29/17 09:20 Urine Nitrite Neg (Negative) 07/29/17 09:20 Urine Bilirubin Neg (Negative) 07/29/17 09:20 Urine Urobilinogen < 2.0 mg/dL (<2.0) 07/29/17 09:20 Ur Leukocyte Esterase Neg (Negative) 07/29/17 09:20 Urine WBC (Auto) 3.0 /HPF (0.0-6.0) 07/29/17 09:20 Urine RBC (Auto) 4.0 /HPF (0.0-6.0) 07/29/17 09:20 U Epithel Cells (Auto) < 1.0 /HPF (0-13.0) 07/29/17 09:20 Uric Acid Crystals 1+ 07/29/17 09:20 Urine Mucus 2+ /HPF 07/29/17 09:20 Plasma/Serum Alcohol < 0.01 % (0-0.07) 07/29/17 10:19
[2017-07-31] MEDS: MILK OF MAGNESIA PO PRN (19:49)
[2017-08-01] MEDS: MILK OF MAGNESIA PO PRN (08:50)
[2017-08-01 09:29] LABS: Chol/HDL Ratio 3.49 %
[2017-08-01] MEDS ORDERED: MIRALAX 3350 PO PRN (10:03)
--- NOTE | 2017-08-01 10:06 | Hem/Onc Progress Note ---
Assessment and Plan Continue supportive care. switched to Xarelto. Patient's CBC shows hemoglobin coming down. I feel his high hemoglobin was possibly from volume depletion and is improving. Upon discharge I can follow him. Platelets slightly low. Can be followed as outpatient. Add laxative MiraLAX Subjective Date of service: 08/01/17 Interval history: Patient continues to have a right sided flank pain. He rates it at 8 out of 10. Complains of constipation. Milk of Fusion Coolant Systemsesia not working for him Objective - Constitutional Vitals: Last Vital Signs Temp 98.3 F 08/01/17 08:33 Pulse 89 08/01/17 08:33 Resp 20 08/01/17 08:33 BP 148/90 08/01/17 08:33 Pulse Ox 91 08/01/17 08:33 General appearance: mild distress Performance status: 2- selfcare, ambulatory - Neck Neck: supple - Respiratory Respiratory effort: Positive: normal - Cardiovascular Rhythm: regular - Gastrointestinal General gastrointestinal: Present: soft (firm. Bowel sounds positive) - Labs Lab Results: Laboratory Results - last 24 hr 07/31/17 08/01/17 14:42 08:47 Heparin Anti-Xa Level 0.14 L Sodium 137 Potassium 4.6 Chloride 97.4 L Carbon Dioxide 27 Anion Gap 17 BUN 14 Creatinine 1.5 Estimated GFR 58 BUN/Creatinine Ratio 9 Glucose 118 H Calcium 9.0 Triglycerides 129 Cholesterol 178 LDL Cholesterol Direct 103 HDL Cholesterol 51 Cholesterol/HDL Ratio 3.49
--- NOTE | 2017-08-01 10:36 | Discharge Summary ---
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
--- NOTE | 2017-08-01 10:52 | Progress Note ---
Assessment and Plan Assessment and plan: --Ischemia and infarction of kidney Received heparin drip, will DC heparin drip and start Xarelto monitor for any evidence of bleeding --History of protein C deficiency; patient was advised lifelong chronic anticoagulation However patient is noncompliant --Rule out source of embolus; echocardiogram to rule out LV thrombus Cardiology consult[recommended by vascular] --PAD (peripheral artery disease) lipid panel, low cholesterol diet, therapeutic anticoagulation, Low-dose statin --Hypertensive urgency, well controlled monitor blood pressure and when necessary IV hydralazine --Nicotine dependence ; smoking cessation counseling done Nicotine patch as needed --History of ETOH abuse; counseling done advised to quit Thiamine, Folic Acid, Multivitamin, CIWA Protocol. --Medical noncompliance; counseling done patient strongly advised importance of adhering to the treatment plan Especially chronic anticoagulation in view of protein C deficiency --DVT prophylaxis Patient is already on Xarelto Consults and recommendations noted and appreciated Case management but is planning Possible discharge in 1-2 days if stable History Interval history: Patient seen and examined medical records reviewed No new events reported by the nursing staff Hematology recommend Xeralto in follow-up upon discharge Discussed with vascular, recommend cardiology evaluation and echocardiogram To rule out LV thrombus, in view of renal infarction Patient is alert awake oriented 3 Vital signs reviewed Hospitalist Physical - Constitutional Vitals: Temp Pulse Resp BP Pulse Ox 98.3 F 89 20 148/90 91 08/01/17 08:33 08/01/17 08:33 08/01/17 08:33 08/01/17 08:33 08/01/17 08:33 General appearance: Present: no acute distress, well-nourished - EENT Eyes: Present: PERRL, EOM intact - Neck Neck: Present: supple, normal ROM - Respiratory Respiratory effort: normal Respiratory: bilateral: diminished, negative: rales, rhonchi, wheezing - Cardiovascular Rhythm: regular Heart Sounds: Present: S1 & S2 - Extremities Extremities: no ischemia, No edema - Abdominal General gastrointestinal: soft, non-tender, non-distended, normal bowel sounds - Integumentary Integumentary: Present: clear, warm - Psychiatric Psychiatric: appropriate mood/affect, cooperative - Neurologic Neurologic: CNII-XII intact, moves all extremities Results - Labs CBC & Chem 7: 07/31/17 03:40 08/01/17 08:47 Labs: Laboratory Last Values WBC 11.4 K/mm3 (4.5-11.0) H 07/31/17 03:40 RBC 5.06 M/mm3 (3.65-5.03) H 07/31/17 03:40 Hgb 15.5 gm/dl (11.8-15.2) H 07/31/17 03:40 Hct 47.8 % (35.5-45.6) H 07/31/17 03:40 MCV 95 fl (84-94) H 07/31/17 03:40 MCH 31 pg (28-32) 07/31/17 03:40 MCHC 32 % (32-34) 07/31/17 03:40 RDW 13.1 % (13.2-15.2) L 07/31/17 03:40 Plt Count 128 K/mm3 (140-440) L 07/31/17 03:40 Lymph % (Auto) 15.2 % (13.4-35.0) 07/31/17 03:40 [place] % (Auto) 11.7 % (0.0-7.3) H 07/31/17 03:40 Eos % (Auto) 0.0 % (0.0-4.3) 07/31/17 03:40 Baso % (Auto) 0.3 % (0.0-1.8) 07/31/17 03:40 Lymph # 1.7 K/mm3 (1.2-5.4) 07/31/17 03:40 [place] # 1.3 K/mm3 (0.0-0.8) H 07/31/17 03:40 Eos # 0.0 K/mm3 (0.0-0.4) 07/31/17 03:40 Baso # 0.0 K/mm3 (0.0-0.1) 07/31/17 03:40 Seg Neutrophils % 72.8 % (40.0-70.0) H 07/31/17 03:40 Seg Neutrophils # 8.3 K/mm3 (1.8-7.7) H 07/31/17 03:40 PT 15.1 Sec. (12.2-14.9) H 07/29/17 15:33 INR 1.13 (0.87-1.13) 07/29/17 15:33 APTT 188.7 Sec. (24.2-36.6) H* 07/29/17 15:33 Heparin Anti-Xa Level 0.14 U.I./ml (0.3-0.7) L 07/31/17 14:42 Sodium 137 mmol/L (137-145) 08/01/17 08:47 Potassium 4.6 mmol/L (3.6-5.0) 08/01/17 08:47 Chloride 97.4 mmol/L (98-107) L 08/01/17 08:47 Carbon Dioxide 27 mmol/L (22-30) 08/01/17 08:47 Anion Gap 17 mmol/L 08/01/17 08:47 BUN 14 mg/dL (9-20) 08/01/17 08:47 Creatinine 1.5 mg/dL (0.8-1.5) 08/01/17 08:47 Estimated GFR 58 ml/min 08/01/17 08:47 BUN/Creatinine Ratio 9 % 08/01/17 08:47 Glucose 118 mg/dL (75-100) H 08/01/17 08:47 Calcium 9.0 mg/dL (8.4-10.2) 08/01/17 08:47 Total Bilirubin 0.50 mg/dL (0.1-1.2) 07/29/17 07:11 AST 34 units/L (5-40) 07/29/17 07:11 ALT 22 units/L (7-56) 07/29/17 07:11 Alkaline Phosphatase 101 units/L (35-129) 07/29/17 07:11 Total Protein 8.2 g/dL (6.3-8.2) 07/29/17 07:11 Albumin 4.2 g/dL (3.9-5) 07/29/17 07:11 Albumin/Globulin Ratio 1.1 % 07/29/17 07:11 Triglycerides 129 mg/dL (2-149) 08/01/17 08:47 Cholesterol 178 mg/dL (50-199) 08/01/17 08:47 LDL Cholesterol Direct 103 mg/dL (50-130) 08/01/17 08:47 HDL Cholesterol 51 mg/dL (40-59) 08/01/17 08:47 Cholesterol/HDL Ratio 3.49 % 08/01/17 08:47 Lipase 54 units/L (13-60) 07/29/17 07:11 Prostate Specific Ag 1.99 ng/mL (0.00-4.00) 07/29/17 10:19 Urine Color Yellow (Yellow) 07/29/17 09:20 Urine Turbidity Clear (Clear) 07/29/17 09:20 Urine pH 5.0 (5.0-7.0) 07/29/17 09:20 Ur Specific [place] 1.028 (1.003-1.030) 07/29/17 09:20 Urine Protein 100 mg/dl mg/dL (Negative) 07/29/17 09:20 Urine Glucose (UA) 50 mg/dL (Negative) 07/29/17 09:20 Urine Ketones Tr mg/dL (Negative) 07/29/17 09:20 Urine Blood Mod (Negative) 07/29/17 09:20 Urine Nitrite Neg (Negative) 07/29/17 09:20 Urine Bilirubin Neg (Negative) 07/29/17 09:20 Urine Urobilinogen < 2.0 mg/dL (<2.0) 07/29/17 09:20 Ur Leukocyte Esterase Neg (Negative) 07/29/17 09:20 Urine WBC (Auto) 3.0 /HPF (0.0-6.0) 07/29/17 09:20 Urine RBC (Auto) 4.0 /HPF (0.0-6.0) 07/29/17 09:20 U Epithel Cells (Auto) < 1.0 /HPF (0-13.0) 07/29/17 09:20 Uric Acid Crystals 1+ 07/29/17 09:20 Urine Mucus 2+ /HPF 07/29/17 09:20 Plasma/Serum Alcohol < 0.01 % (0-0.07) 07/29/17 10:19
[2017-08-01] MEDS ORDERED: MILK OF MAGNESIA PO ONE (11:00)
[2017-08-01] MEDS: VITAMIN B-1 PO SCH (11:47)
[2017-08-01] MEDS: HABITROL TD SCH (11:47)
[2017-08-01] MEDS: FOLVITE PO SCH (11:48)
[2017-08-01] MEDS: SODIUM CHLORIDE FLUSH SYRINGE 10 ML IV SCH (11:48)
[2017-08-01] MEDS: XARELTO PO SCH ×2 (11:48→21:09)
[2017-08-01] MEDS: THERAGRAN Tab PO SCH (11:49)
--- NOTE | 2017-08-01 15:15 | Consultation ---
History of Present Illness Consult date: 08/01/17 Consult reason: other (r/o cardioembolic source) History of present illness: This is a 56yr old male with a history of PAD status post right above the knee amputation. He has a history of Protein C deficiency, pulmonary embolism, multiple deep vein thrombus and as a result , has an indwelling IVC filter. Patient was treated with warfarin for oral anticoagulation but secondary to noncompliance, was recently switched to xarelto. The patient is hospitalized at this time with right kidney infarct. A cardiac consultation is requested for rule out cardioembolic etiology. There is no EKG available for review. There are no tachyarrhythmias seen on telemetry strips. Patient denies a prior cardiac history. He also denies recent cardiac workup. Past History Past Medical History: DVT, hypertension, PVD, pulmonary embolism Past Surgical History: Other (AKA) Social history: single, smoking, alcohol abuse Family history: hypertension Medications and Allergies Allergies Allergy/AdvReac Type Severity Reaction Status Date / Time aspirin Allergy Unknown Verified 07/29/17 06:34 Home Medications Medication Instructions Recorded Confirmed Last Taken Type No Known Home Medications [No 07/29/17 07/29/17 Unknown History Reported Home Medications] Active Meds: Active Medications Acetaminophen (Tylenol) 650 mg PO Q4H PRN PRN Reason: Pain MILD(1-3)/Fever >100.5/[place] Last Admin: 07/29/17 18:42 Dose: 650 mg Albuterol (Proventil) 2.5 mg IH Q4H PRN PRN Reason: Shortness Of Breath Atorvastatin Calcium (Lipitor) 20 mg PO QHS [facility] Last Admin: 07/31/17 21:25 Dose: 20 mg Folic Acid (Folvite) 1 mg PO QDAY [facility] Last Admin: 08/01/17 11:48 Dose: 1 mg Hydralazine HCl (Apresoline) 10 mg IV Q6H PRN PRN Reason: Blood Pressure Last Admin: 07/29/17 21:11 Dose: 10 mg Magnesium Hydroxide (Milk Of Magnesia) 30 ml PO Q4H PRN PRN Reason: Constipation Last Admin: 08/01/17 08:50 Dose: 30 ml Multivitamins (Theragran Tab) 1 each PO QDAY [facility] Last Admin: 08/01/17 11:49 Dose: 1 each Nicotine (Habitrol) 21 mg TD QDAY [facility] Last Admin: 08/01/17 11:47 Dose: 21 mg Ondansetron HCl (Zofran) 4 mg IV Q8H PRN PRN Reason: Nausea And Vomiting Last Admin: 07/31/17 17:26 Dose: 4 mg Oxycodone/Acetaminophen (Percocet 5/325) 1 tab PO Q6H PRN PRN Reason: Pain, Moderate (4-6) Last Admin: 07/31/17 21:28 Dose: 1 tab Polyethylene Glycol (Miralax 3350) 17 gm PO QDAY PRN PRN Reason: Constipation Last Admin: 08/01/17 12:00 Dose: 17 gm Rivaroxaban (Xarelto) 15 mg PO BID [facility]; Protocol Last Admin: 08/01/17 11:48 Dose: 15 mg Sodium Chloride (Sodium Chloride Flush Syringe 10 Ml) 10 ml IV BID [facility] Last Admin: 08/01/17 11:48 Dose: 10 ml Sodium Chloride (Sodium Chloride Flush Syringe 10 Ml) 10 ml IV PRN PRN PRN Reason: LINE FLUSH Thiamine HCl (Vitamin B-1) 100 mg PO QDAY [facility] Last Admin: 08/01/17 11:47 Dose: 100 mg Physical Examination Vital Signs Temp Pulse Resp BP Pulse Ox 98.4 F 93 H 20 197/117 98 07/29/17 06:38 07/29/17 06:38 07/29/17 06:38 07/29/17 06:38 07/29/17 06:38 Results 07/31/17 03:40 08/01/17 08:47 Lipids 08/01/17 Range/Units 08:47 Triglycerides 129 (2-149) mg/dL Cholesterol 178 (50-199) mg/dL HDL Cholesterol 51 (40-59) mg/dL Cholesterol/HDL Ratio 3.49 % Comprehensive Metabolic Panel 08/01/17 Range/Units 08:47 Sodium 137 (137-145) mmol/L Potassium 4.6 (3.6-5.0) mmol/L Chloride 97.4 L (98-107) mmol/L Carbon Dioxide 27 (22-30) mmol/L BUN 14 (9-20) mg/dL Creatinine 1.5 (0.8-1.5) mg/dL Glucose 118 H (75-100) mg/dL Calcium 9.0 (8.4-10.2) mg/dL Assessment and Plan Right renal infarct Hypertension PAD s/p right AKA Hx of DVT/PE currently on Xarelto for oral anticoagulation Recommend: An echocardiogram for further cardiac assessment. 12 lead ECG.
[2017-08-01] MEDS ORDERED: FLEET PR ONE (20:42)
[2017-08-02] MEDS: PERCOCET 5/325 PO PRN (00:44)
[2017-08-02] MEDS: APRESOLINE IV PRN (00:59)
--- NOTE | 2017-08-02 09:57 | Progress Note ---
Assessment and Plan Assessment and plan: --Ischemia and infarction of kidney Received heparin drip, will DC heparin drip and start Xarelto monitor for any evidence of bleeding --Rule out source of embolus; echocardiogram to rule out LV thrombus Cardiology consult[recommended by vascular] --History of protein C deficiency; patient was advised lifelong chronic anticoagulation However patient is noncompliant --PAD (peripheral artery disease) lipid panel, low cholesterol diet, therapeutic anticoagulation, Low-dose statin --Hypertensive urgency, well controlled monitor blood pressure and when necessary IV hydralazine --Nicotine dependence ; smoking cessation counseling done Nicotine patch as needed --History of ETOH abuse; counseling done advised to quit Thiamine, Folic Acid, Multivitamin, CIWA Protocol. --Medical noncompliance; counseling done patient strongly advised importance of adhering to the treatment plan Especially chronic anticoagulation in view of protein C deficiency --DVT prophylaxis Patient is already on Xarelto Consults and recommendations noted and appreciated Case management but is planning Possible discharge in 1-2 days if stable Hospitalist Physical - Constitutional Vitals: Temp Pulse Resp BP Pulse Ox 99.4 F 93 H 20 136/89 96 08/02/17 08:05 08/02/17 08:05 08/02/17 08:05 08/02/17 08:05 08/02/17 08:05 General appearance: Present: no acute distress, well-nourished Results - Labs CBC & Chem 7: 07/31/17 03:40 08/01/17 08:47 Labs: Laboratory Last Values WBC 11.4 K/mm3 (4.5-11.0) H 07/31/17 03:40 RBC 5.06 M/mm3 (3.65-5.03) H 07/31/17 03:40 Hgb 15.5 gm/dl (11.8-15.2) H 07/31/17 03:40 Hct 47.8 % (35.5-45.6) H 07/31/17 03:40 MCV 95 fl (84-94) H 07/31/17 03:40 MCH 31 pg (28-32) 07/31/17 03:40 MCHC 32 % (32-34) 07/31/17 03:40 RDW 13.1 % (13.2-15.2) L 07/31/17 03:40 Plt Count 128 K/mm3 (140-440) L 07/31/17 03:40 Lymph % (Auto) 15.2 % (13.4-35.0) 07/31/17 03:40 [place] % (Auto) 11.7 % (0.0-7.3) H 07/31/17 03:40 Eos % (Auto) 0.0 % (0.0-4.3) 07/31/17 03:40 Baso % (Auto) 0.3 % (0.0-1.8) 07/31/17 03:40 Lymph # 1.7 K/mm3 (1.2-5.4) 07/31/17 03:40 [place] # 1.3 K/mm3 (0.0-0.8) H 07/31/17 03:40 Eos # 0.0 K/mm3 (0.0-0.4) 07/31/17 03:40 Baso # 0.0 K/mm3 (0.0-0.1) 07/31/17 03:40 Seg Neutrophils % 72.8 % (40.0-70.0) H 07/31/17 03:40 Seg Neutrophils # 8.3 K/mm3 (1.8-7.7) H 07/31/17 03:40 PT 15.1 Sec. (12.2-14.9) H 07/29/17 15:33 INR 1.13 (0.87-1.13) 07/29/17 15:33 APTT 188.7 Sec. (24.2-36.6) H* 07/29/17 15:33 Heparin Anti-Xa Level 0.14 U.I./ml (0.3-0.7) L 07/31/17 14:42 Sodium 137 mmol/L (137-145) 08/01/17 08:47 Potassium 4.6 mmol/L (3.6-5.0) 08/01/17 08:47 Chloride 97.4 mmol/L (98-107) L 08/01/17 08:47 Carbon Dioxide 27 mmol/L (22-30) 08/01/17 08:47 Anion Gap 17 mmol/L 08/01/17 08:47 BUN 14 mg/dL (9-20) 08/01/17 08:47 Creatinine 1.5 mg/dL (0.8-1.5) 08/01/17 08:47 Estimated GFR 58 ml/min 08/01/17 08:47 BUN/Creatinine Ratio 9 % 08/01/17 08:47 Glucose 118 mg/dL (75-100) H 08/01/17 08:47 Calcium 9.0 mg/dL (8.4-10.2) 08/01/17 08:47 Total Bilirubin 0.50 mg/dL (0.1-1.2) 07/29/17 07:11 AST 34 units/L (5-40) 07/29/17 07:11 ALT 22 units/L (7-56) 07/29/17 07:11 Alkaline Phosphatase 101 units/L (35-129) 07/29/17 07:11 Total Protein 8.2 g/dL (6.3-8.2) 07/29/17 07:11 Albumin 4.2 g/dL (3.9-5) 07/29/17 07:11 Albumin/Globulin Ratio 1.1 % 07/29/17 07:11 Triglycerides 129 mg/dL (2-149) 08/01/17 08:47 Cholesterol 178 mg/dL (50-199) 08/01/17 08:47 LDL Cholesterol Direct 103 mg/dL (50-130) 08/01/17 08:47 HDL Cholesterol 51 mg/dL (40-59) 08/01/17 08:47 Cholesterol/HDL Ratio 3.49 % 08/01/17 08:47 Lipase 54 units/L (13-60) 07/29/17 07:11 Prostate Specific Ag 1.99 ng/mL (0.00-4.00) 07/29/17 10:19 Urine Color Yellow (Yellow) 07/29/17 09:20 Urine Turbidity Clear (Clear) 07/29/17 09:20 Urine pH 5.0 (5.0-7.0) 07/29/17 09:20 Ur Specific [place] 1.028 (1.003-1.030) 07/29/17 09:20 Urine Protein 100 mg/dl mg/dL (Negative) 07/29/17 09:20 Urine Glucose (UA) 50 mg/dL (Negative) 07/29/17 09:20 Urine Ketones Tr mg/dL (Negative) 07/29/17 09:20 Urine Blood Mod (Negative) 07/29/17 09:20 Urine Nitrite Neg (Negative) 07/29/17 09:20 Urine Bilirubin Neg (Negative) 07/29/17 09:20 Urine Urobilinogen < 2.0 mg/dL (<2.0) 07/29/17 09:20 Ur Leukocyte Esterase Neg (Negative) 07/29/17 09:20 Urine WBC (Auto) 3.0 /HPF (0.0-6.0) 07/29/17 09:20 Urine RBC (Auto) 4.0 /HPF (0.0-6.0) 07/29/17 09:20 U Epithel Cells (Auto) < 1.0 /HPF (0-13.0) 07/29/17 09:20 Uric Acid Crystals 1+ 07/29/17 09:20 Urine Mucus 2+ /HPF 07/29/17 09:20 Plasma/Serum Alcohol < 0.01 % (0-0.07) 07/29/17 10:19
[2017-08-02] MEDS: MILK OF MAGNESIA PO PRN (12:08)
[2017-08-02] MEDS: FOLVITE PO SCH (12:08)
[2017-08-02] MEDS: THERAGRAN Tab PO SCH (12:08)
[2017-08-02] MEDS: HABITROL TD SCH (12:08)
[2017-08-02] MEDS: XARELTO PO SCH (12:08)
[2017-08-02] MEDS: VITAMIN B-1 PO SCH (12:08)
[2017-08-02] MEDS: SODIUM CHLORIDE FLUSH SYRINGE 10 ML IV SCH (12:10)
--- NOTE | 2017-08-02 12:27 | Hem/Onc Progress Note ---
Assessment and Plan Continue supportive care. switched to Xarelto. Patient's CBC shows hemoglobin coming down. I feel his high hemoglobin was possibly from volume depletion and is improving. Upon discharge I can follow him. Platelets slightly low. Can be followed as outpatient. Subjective Date of service: 08/02/17 Interval history: Patient feels better. Pain 7 out of 10. Objective - Constitutional Vitals: Last Vital Signs Temp 99.4 F 08/02/17 11:37 Pulse 86 08/02/17 11:37 Resp 20 08/02/17 11:37 BP 140/93 08/02/17 11:37 Pulse Ox 95 08/02/17 11:37 General appearance: no acute distress - Neck Neck: supple - Respiratory Respiratory effort: Positive: normal Respiratory: bilateral: diminished - Cardiovascular Rhythm: regular - Gastrointestinal General gastrointestinal: Present: soft
--- NOTE | 2017-08-02 14:59 | Progress Note ---
Assessment and Plan - Patient Problems (1) Ischemia and infarction of kidney Current Visit: Yes Status: Acute Plan to address problem: His echocardiogram reveals normal left ventricular chamber size and systolic function, ejection fraction 55-60%, no significant valvular lesions and no echocardiographic evidence of cardioembolic source. Subjective Date of service: 08/02/17 Interval history: The patient is a 56-year-old man with a history of protein C deficiency, previous multiple deep vein thrombosis, previous pulmonary embolism, with indwelling IVC filter. He is on chronic oral anticoagulation with Xarelto. He is hospitalized at this time with a renal parenchymal infarct, and cardiology was consulted to assess for a cardioembolic source. His echocardiogram reveals normal left ventricular chamber size and systolic function, ejection fraction 55-60%, no significant valvular lesions and no echocardiographic evidence of cardioembolic source. Objective Vital Signs Temp Pulse Pulse Resp BP BP Pulse Ox 08/02/17 11:37 99.4 F 86 20 140/93 95 08/02/17 08:05 99.4 F 93 H 20 136/89 96 08/02/17 05:29 98.7 F 85 18 120/72 94 08/02/17 00:59 96 H 166/99 08/02/17 00:44 20 08/02/17 00:24 100.1 F H 89 20 165/99 95 08/01/17 21:14 76 08/01/17 20:00 99.8 F H 87 20 148/101 96 08/01/17 15:38 98.6 F 84 20 142/87 95 - Physical Examination General: Appears Well, No Apparent Distress HEENT: Positive: PERRL Neck: Positive: neck supple Cardiac: Positive: Reg Rate and Rhythm Lungs: Positive: Decreased Breath Sounds Neuro: Positive: Grossly Intact Abdomen: Positive: Soft Skin: Positive: Clear Extremities: Absent: edema
[2017-08-02 15:59] VITALS: BP 142/83
--- NOTE | 2017-08-02 18:11 | Discharge Summary ---
Providers - Providers Date of Admission: 07/29/17 13:04 Date of discharge: 08/02/17 Attending physician: TILA CURIEL 07/29/17 13:08 Consult to Physician [CONS] Stat Comment: Consulting Provider: SANDY VILLALPANDO Physician Instructions: Reason For Exam: renal infarction, PVD 07/30/17 07:52 Consult to Physician [CONS] Routine Comment: Consulting Provider: MONICA KRAFT Physician Instructions: Reason For Exam: protein c deficiency 08/01/17 10:47 Consult to Physician [CONS] Routine Comment: Consulting Provider: MARIA L MARTINEZ Physician Instructions: Reason For Exam: renal infarction/r/o LV thrombus Primary care physician: [facility] Hospitalization Reason for admission: abdominal pain of 2 days' duration Condition: Stable Pertinent studies: CT abdomen and pelvis; acute subacute infarct involving proximal 30% of the right kidney with patent right renal artery occlusion of right common femoral and superficial femoral arteries with collateral atherosclerotic disease of the aorta to extensive noncalcified plaque atherosclerotic disease of the neck arteries and bilateral common iliac aneurysm large prostate CTA abdomen; findings reviewed, evaluated by vascular CTA chest; findings reviewed Echocardiogram; left ventricle ejection fraction 55-60% No evidence of cardioembolic source Hospital course: Very pleasant 56 year old male with PAD, DVT/PE, HTN, noncompliant with anticoagulation, nicotine Dependence, ETOH abuse was admitted through emergency room with abdominal pain, had extensive evaluation noted to have , ischemia and infarction of the kidney with multiple findings as mentioned above CT report, evaluated by vascular, started on full dose anticoagulation Patient also has history of protein C deficiency, advised chronic anticoagulation however patient was noncompliant The patient was started on full dose anticoagulation, evaluated by dish machine operator. Recommended to change to Xeralto. Patient was also evaluated by cardiology to rule out cardioembolic source. Echocardiogram did not reveal any evidence of cardioembolic source Patient was counseled importance of attending to this treatment plan Patient also consult smoking cessation and nicotine patch as needed On the day of discharge patient was comfortable no new complaints Physical examination did not show any changes Hemodynamically and clinically stable at discharge Strongly advised to follow with hematology oncologist and vascular upon discharge Discharge diagnosis: --Ischemia and infarction of kidney --Evaluated by cardiology, no cardioembolic source --History of protein C deficiency; patient was advised lifelong chronic anticoagulation --PAD (peripheral artery disease) --Hypertensive urgency, well controlled --Nicotine dependence ; smoking cessation counseling done --History of ETOH abuse; counseling done advised to quit --Medical noncompliance; counseling done Disposition: DC-01 TO HOME OR SELFCARE Time spent for discharge: 32 min Core Measure Documentation - Palliative Care Palliative Care/ Comfort Measures: Not Applicable - Core Measures Any of the following diagnoses?: DVT/PE - VTE Discharge Requirements Deep Vein Thrombosis/Pulmonary Embolism Present on Admission: Yes Has pt received <5 days of overlap therapy or INR<2.0: Yes Anticoagulant overlap therapy prescribed at discharge: No Contraindication No Overlap Therapy order at DC: Not Indicated (Patient on xeralto) Exam - Constitutional Vitals: Temp Pulse Resp BP Pulse Ox 99.3 F 102 H 20 142/83 95 08/02/17 14:59 08/02/17 14:59 08/02/17 14:59 08/02/17 14:59 08/02/17 14:59 General appearance: Present: no acute distress, well-nourished - EENT Eyes: Present: PERRL, EOM intact - Neck Neck: Present: supple, normal ROM - Respiratory Respiratory effort: normal Respiratory: negative: rales, rhonchi, wheezing - Cardiovascular Rhythm: regular Heart Sounds: Present: S1 & S2 - Extremities Extremities: no ischemia, No edema Peripheral Pulses: within normal limits - Abdominal General gastrointestinal: Present: soft, non-tender, non-distended, normal bowel sounds - Integumentary Integumentary: Present: clear, warm - Musculoskeletal Musculoskeletal: strength equal bilaterally - Psychiatric Psychiatric: appropriate mood/affect, cooperative - Neurologic Neurologic: CNII-XII intact, moves all extremities Plan Activity: advance as tolerated Special Instructions: smoking cessation Additional Instructions: Advised to comply with treatment. If you notice any bleeding, stopped Xeralto and contact [facility] Smoking cessation counseling, advised to quit tobacco use Follow up with: PRIMARY CARE, [Primary Care Provider] - 7 Days MONICA KRAFT MD [Staff Physician] - 7 Days Prescriptions: AtorvaSTATin [Lipitor] 20 mg PO QHS #30 tablet Folic Acid [Folvite] 1 mg PO QDAY #30 tablet Nicotine [Habitrol] 21 mg TD QDAY #30 patch oxyCODONE /ACETAMINOPHEN [Percocet 5/325] 1 tab PO QHS #7 tablet Rivaroxaban [Xarelto] 15 mg PO BID #38 tablet Rivaroxaban [Xarelto] 20 mg PO QDAY #10 tab Thiamine [Vitamin B-1] 100 mg PO QDAY #30 tablet
== END 2017-08-02 19:21 | disposition home or self-care (01) | DRG 699 ==
LOC: ED 06:29 → 3A 13:04
PROVIDERS: ADMIT Internal Medicine; ATTEND Internal Medicine
DX: N28.0 Ischemia and infarction of kidney (principal); D68.59 Other primary thrombophilia; F17.203 Nicotine dependence unspecified, with withdrawal; I73.9 Peripheral vascular disease, unspecified; I16.0 Hypertensive urgency; Z71.6 Tobacco abuse counseling; F10.10 Alcohol abuse, uncomplicated; Z71.41 Alcohol abuse counseling and surveillance of alcoholic; Z91.14 Patient's other noncompliance with medication regimen; I10 Essential (primary) hypertension; Z86.711 Personal history of pulmonary embolism; Z86.718 Personal history of other venous thrombosis and embolism; Z79.01 Long term (current) use of anticoagulants; Z89.611 Acquired absence of right leg above knee; D75.1 Secondary polycythemia; N40.0 Benign prostatic hyperplasia without lower urinary tract symptoms
CPT/HCPCS: 36415; 71275; 74174; 74177; 80048; 80053; 80061; 80320; 81001; 82668; 83690; 84153; 85014; 85018; 85025; 85049; 85520; 85610; 85730; 93005; 93010; 93306; 99406; A9270-GY; G0480; J0360; J1170; J1644; J2405; J7030; Q0162; Q9967